=== PATIENT | female | born 1995 | race African-American/Black ===

== ENCOUNTER 2022-04-19 08:32 | Emergency (ER) | payer OTHER ==
[2022-04-19 08:46] VITALS: BP 120/80; PULSE 106; RESP 18; TEMP 99; BMI 37.6
[2022-04-19] MEDS ORDERED: ACETAMINOPHEN 500 MG TABLET (FP) PO ONE (09:50)
[2022-04-19] MEDS ORDERED: ACETAMINOPHEN 325 MG TABLET (FP) ONE (09:52)
[2022-04-19 10:35] LABS: BLOOD UREA NITROGEN 5.1 mg/dL (7-18)
[2022-04-19 10:38] LABS: CREATININE 0.6 mg/dL (0.55-1.3)
[2022-04-19 10:40] LABS: BILIRUBIN,TOTAL 0.3 mg/dL (0.2-1); TOT PROT 6.9 g/dl (6.4-8.2)
== END 2022-04-19 16:39 | disposition home or self-care (01) ==
LOC: JER 08:32
DX: O9A.212 Injury, poisoning and certain other consequences of external causes complicating pregnancy, second trimester (principal); S36.30XA Unspecified injury of stomach, initial encounter; Y04.0XXA Assault by unarmed brawl or fight, initial encounter; Z3A.18 18 weeks gestation of pregnancy
CPT/HCPCS: 36415; 76815; 80053; 86850; 86900; 86901; 99284-25